=== PATIENT | male | born 1955 | race Caucasian/White ===

== ENCOUNTER 2017-05-17 23:23 | Inpatient (IN) | payer BC, OTHER ==
[2017-05-17] MEDS ORDERED: NS 1,000 ML IV ONE (23:29)
[2017-05-17] MEDS ORDERED: fentaNYL 100 MCG/2 ML INJ IVP ONE (23:29)
[2017-05-17] MEDS ORDERED: ONDANSETRON 4 MG/2 ML VIAL IVP ONE (23:29)
--- NOTE | 2017-05-17 23:32 | EDPHY ---
H & P HPI/ROS: HPI CHIEF COMPLAINT: Abdominal pain, nausea, vomiting HISTORY OF PRESENT ILLNESS: This patient is 61-year-old male, he is visiting from [facility] he arrived today in [place]. Staying at a local hotel. He presents emergency room with nausea vomiting and mid abdominal abdominal pain. Quite severe. 08/19. With multiple episodes of nonbilious nonbloody vomiting. No diarrhea. He states he ate a hamburger and potatoes for dinner around 5:00 p.m. around an hour later 6:00 p.m. he developed symptoms. His abdominal pain is still present mid abdomen. With associated nausea. No fever. No diarrhea. Denies chest pain or shortness of breath. Past Medical History: Hepatitis C, heart bony treatment, tips procedure, hypertension Past Surgical History: Tips procedure, appendectomy Social History: Lives in [facility], denies daily use of drugs alcohol tobacco. Family History: Noncontributory ROS REVIEW OF SYSTEMS: A comprehensive 10 point review of systems is otherwise negative aside from elements mentioned in the history of present illness. Exam Constitutional appears nontoxic triage nursing summary reviewed, vital signs reviewed, awake/alert. Eyes normal conjunctivae and sclera, EOMI, PERRLA. HENT normal inspection, atraumatic, moist mucus membranes, no epistaxis, neck supple/ no meningismus, no raccoon eyes. Respiratory clear to auscultation bilaterally, normal breath sounds, no respiratory distress, no wheezing. Cardiovascular rate normal, regular rhythm, no murmur, no edema, distal pulses normal. Gastrointestinal tender palpation mid abdomen, is umbilical hernia present. Rather hard. Tender to palpation. Decreased bowel sounds. , no rebound, no guarding, , no distension, no pulsatile mass. Genitourinary no CVA tenderness. Musculoskeletal no midline vertebral tenderness, full range of motion, no calf swelling, no tenderness of extremities, no meningismus, good pulses, neurovascularly intact. Skin pink, warm, & dry, no rash, skin atraumatic. Neurologic awake, alert and oriented x 3, AAOx3, moves all 4 extremities equally, motor intact, sensory intact, CN II-XII intact, normal cerebellar, normal vision, normal speech. Psychiatric normal mood/affect. Heme/Lymph/Immune no lymphadenopathy. Differential Diagnosis:Differential diagnosis includes but is not limited to and in no particular order: Bowel obstruction, appendicitis, gallbladder disease, diverticulitis, colitis, enteritis, perforated viscus, gastritis, GERD , esophagitis, urinary tract infection, pyelonephritis, kidney stones Medical Decision Making: Re-evaluation: EKG interpretation by me on record in [employer] system. Impression time of EKG 0009: This EKG is sinus tachycardia rate of 100. No acute ischemic changes. CT scan of the abdomen pelvis with/out IV contrast. The results of the study are this shows incarcerated bowel in the umbilical hernia. Dilatation with small-bowel obstruction. The study was read by Dr. Mcmillan I viewed the images myself on the PACS system. 0109AM: Patient has a bowel obstruction with incarcerated bowel stuck in the umbilical hernia. I will consult surgery. 0123AM: Spoke with Dr. Lombardo he will come and see and evaluate the patient. Patient made NPO. Plan for most likely patient go to the or. Source: Patient, EMS Constitutional: Initial Vital Signs Temperature (C) 36.8 C 05/17/17 23:32 Heart Rate 98 05/17/17 23:32 Respiratory Rate 20 05/17/17 23:32 Blood Pressure 212/86 H 05/17/17 23:32 O2 Sat (%) 94 05/17/17 23:32 O2 Delivery Mode Nasal Cannula O2 (L/minute) 3 Home Medications: Medication Instructions Recorded LACTULOSE 05/17/17 Lasix 05/17/17 Spironolactone 05/17/17 Tamsulosin HCl 05/17/17 Xifaxan 05/17/17 Medical Decision Making - Data Points Laboratory Results: Laboratory Results 05/17/17 23:56 05/17/17 23:56 05/18/17 05/18/17 05/17/17 01:05 00:03 23:56 WBC RBC Hgb Hct MCV MCH MCHC RDW Plt Count MPV Neut % (Auto) Lymph % (Auto) [place] % (Auto) Eos % (Auto) Baso % (Auto) Nucleat RBC Rel Count Absolute Neuts (auto) Absolute Lymphs (auto) Absolute Monos (auto) Absolute Eos (auto) Absolute Basos (auto) Absolute Nucleated RBC Immature Gran % Immature Gran # PT INR APTT VBG Lactic Acid 1.8 mmol/L mmol/L (0.7-2.1) Sodium 143 mEq/L mEq/L (134-144) Potassium 4.2 mEq/L mEq/L (3.5-5.2) Chloride 113 mEq/L H mEq/L (97-110) Carbon Dioxide 23 mEq/l mEq/l (22-31) Anion Gap 7 mEq/L L mEq/L (8-16) BUN 33 mg/dL H mg/dL (7-23) Creatinine 1.9 mg/dL H mg/dL (0.7-1.3) Estimated GFR 36 Glucose 177 mg/dL H mg/dL (70-100) Calcium 9.3 mg/dL mg/dL (8.5-10.4) Total Bilirubin 1.6 mg/dL H mg/dL (0.1-1.4) Conjugated Bilirubin 0.4 mg/dL mg/dL (0.0-0.5) Unconjugated Bilirubin 1.2 mg/dL H mg/dL (0.0-1.1) AST 44 IU/L IU/L (17-59) ALT 33 IU/L IU/L (21-72) Alkaline Phosphatase 148 IU/L H IU/L (38-126) Troponin I 0.024 ng/mL ng/mL (0-0.034) Total Protein 6.3 g/dL g/dL (6.3-8.2) Albumin 2.7 g/dL L g/dL (3.5-5.0) Lipase 223.0 IU/L IU/L (23-300) Urine Color YELLOW Urine Appearance HAZY Urine pH 7.0 (5.0-7.5) Ur Specific [place] 1.026 (1.002-1.030) Urine Protein 3+ H (NEGATIVE) Urine Ketones NEGATIVE (NEGATIVE) Urine Blood 2+ H (NEGATIVE) Urine Nitrate NEGATIVE (NEGATIVE) Urine Bilirubin NEGATIVE (NEGATIVE) Urine Urobilinogen NEGATIVE EU EU (0.2-1.0) Ur Leukocyte Esterase NEGATIVE (NEGATIVE) Urine RBC 15-25 /hpf H /hpf (0-3) Urine WBC 1-3 /hpf /hpf (0-3) Ur Epithelial Cells NONE SEEN /lpf /lpf (NONE-1+) Hyaline Casts 5-15 /lpf /lpf (0-1) Urine Mucus TRACE /lpf /lpf (NONE-1+) Urine Glucose 2+ H (NEGATIVE) 05/17/17 05/17/17 23:56 23:56 WBC 11.18 10^3/uL H 10^3/uL (3.80-9.50) RBC 3.94 10^6/uL L 10^6/uL (4.40-6.38) Hgb 12.6 g/dL L g/dL (13.7-17.5) Hct 36.0 % L % (40.0-51.0) MCV 91.4 fL fL (81.5-99.8) MCH 32.0 pg pg (27.9-34.1) MCHC 35.0 g/dL g/dL (32.4-36.7) RDW 14.2 % % (11.5-15.2) Plt Count 127 10^3/uL L 10^3/uL (150-400) MPV 9.8 fL fL (8.7-11.7) Neut % (Auto) 89.0 % H % (39.3-74.2) Lymph % (Auto) 3.8 % L % (15.0-45.0) [place] % (Auto) 5.5 % % (4.5-13.0) Eos % (Auto) 0.7 % % (0.6-7.6) Baso % (Auto) 0.4 % % (0.3-1.7) Nucleat RBC Rel Count 0.0 % % (0.0-0.2) Absolute Neuts (auto) 9.94 10^3/uL H 10^3/uL (1.70-6.50) Absolute Lymphs (auto) 0.43 10^3/uL L 10^3/uL (1.00-3.00) Absolute Monos (auto) 0.62 10^3/uL 10^3/uL (0.30-0.80) Absolute Eos (auto) 0.08 10^3/uL 10^3/uL (0.03-0.40) Absolute Basos (auto) 0.04 10^3/uL 10^3/uL (0.02-0.10) Absolute Nucleated RBC 0.00 10^3/uL 10^3/uL (0-0.01) Immature Gran % 0.6 % % (0.0-1.1) Immature Gran # 0.07 10^3/uL 10^3/uL (0.00-0.10) PT Pending INR Pending APTT Pending VBG Lactic Acid Sodium Potassium Chloride Carbon Dioxide Anion Gap BUN Creatinine Estimated GFR Glucose Calcium Total Bilirubin Conjugated Bilirubin Unconjugated Bilirubin AST ALT Alkaline Phosphatase Troponin I Total Protein Albumin Lipase Urine Color Urine Appearance Urine pH Ur Specific [place] Urine Protein Urine Ketones Urine Blood Urine Nitrate Urine Bilirubin Urine Urobilinogen Ur Leukocyte Esterase Urine RBC Urine WBC Ur Epithelial Cells Hyaline Casts Urine Mucus Urine Glucose Medications Given: Discontinued Medications Fentanyl (Sublimaze) 100 mcg IVP EDNOW ONE Stop: 05/17/17 23:30 Last Admin: 05/18/17 00:06 Dose: 100 mcg Sodium Chloride (Ns) 1,000 mls @ 0 mls/hr IV ONCE ONE; Wide Open PRN Reason: Protocol Stop: 05/17/17 23:30 Last Admin: 05/18/17 00:05 Dose: 1,000 mls Ondansetron HCl (Zofran) 4 mg IVP EDNOW ONE Stop: 05/17/17 23:30 Last Admin: 05/18/17 00:06 Dose: 4 mg Departure - Departure Disposition: [facility] Inpatient Acute Clinical Impression: SBO (small bowel obstruction), Incarcerated hernia Condition: Fair Referrals: Patient,NotPresent [Unknown] - As per Instructions
[2017-05-18 00:07] LABS: % IMMATURE GRANULYOCYTES 0.6 % (0.0-1.1); ABSOLUTE IMMATURE GRANULOCYTES 0.07 10^3/uL (0.00-0.10); ADD DIFF? NO; ADD MORPH? NO; ADD SCAN? NO; ATYPICAL LYMPHOCYTE FLAG 0 (0-99); FRAGMENT RBC FLAG 0 (0-99); HEMOGLOBIN 12.6 g/dL (13.7-17.5); LEFT SHIFT FLG 0 (0-99); LIPEMIA HEMOLYSIS FLAG 90 (0-99); MEAN CELL VOLUME 91.4 fL (81.5-99.8); MEAN PLATELET VOLUME 9.8 fL (8.7-11.7); PLATELET CLUMPS FLAG 0 (0-99); PLATELET COUNT 127 10^3/uL (150-400); RED BLOOD CELL COUNT 3.94 10^6/uL (4.40-6.38); RED CELL DISTRIBUTION WIDTH 14.2 % (11.5-15.2)
--- NOTE | 2017-05-18 00:11 | CPEKG ---
Heart Rate: 100 RR Interval: 600 P-R Interval: 148 QRSD Interval: 80 QT Interval: 380 QTC Interval: 491 P Deer: 41 QRS [place]: 20 T [place]: 32 EKG Severity - BORDERLINE ECG - EKG Impression: SINUS TACHYCARDIA EKG Impression: BORDERLINE PROLONGED QT INTERVAL Electronically Signed By: Isaac Ro 18-May-2017 07:22:40
[2017-05-18 00:14] LABS: ALANINE AMINOTRANSFERASE 33 IU/L (21-72); ALBUMIN 2.7 g/dL (3.5-5.0); ALKALINE PHOSPHATASE 148 IU/L (38-126); ANION GAP 7 mEq/L (8-16); ASPARTATE AMINOTRANSFERASE 44 IU/L (17-59); BILIRUBIN,TOTAL 1.6 mg/dL (0.1-1.4); BILIRUBIN-CONJUGATED 0.4 mg/dL (0.0-0.5); BILIRUBIN-UNCONJUGATED 1.2 mg/dL (0.0-1.1); CALCIUM 9.3 mg/dL (8.5-10.4); CARBON DIOXIDE 23 mEq/l (22-31); CHLORIDE 113 mEq/L (97-110); CREATININE 1.9 mg/dL (0.7-1.3); GLOMERULAR FILTRATION RATE 36; GLUCOSE 177 mg/dL (70-100); POTASSIUM 4.2 mEq/L (3.5-5.2); SODIUM 143 mEq/L (134-144); TOTAL PROTEIN 6.3 g/dL (6.3-8.2)
[2017-05-18 00:21] LABS: COLOR YELLOW; LEUKOCYTE ESTERASE,URINE NEGATIVE (NEGATIVE); NITRITE,URINE NEGATIVE (NEGATIVE)
[2017-05-18 00:25] LABS: MUCUS TRACE /lpf (NONE-1+); RBC,URINE 15-25 /hpf (0-3)
[2017-05-18 00:26] LABS: TROPONIN I 0.024 ng/mL (0-0.034)
[2017-05-18] MEDS ORDERED: fentaNYL 100 MCG/2 ML INJ IVP ONE (01:22)
[2017-05-18] MEDS ORDERED: BUPIVACAINE 0.5% 30 ML SDV ONE (01:57)
[2017-05-18] MEDS ORDERED: LIDOCAINE 1% 300 MG/30 ML SDV ONE (01:57)
[2017-05-18] MEDS ORDERED: AMPICILLIN/SULBACTAM 3 GM in NS 100 ML IV ONE (02:05)
--- NOTE | 2017-05-18 02:13 | PDGENHP ---
History and Physical - Chief Complaint Abdominal pain - History of Present Illness Barry Quan is a 61-year-old gentleman visiting from [place] with onset of acute abdominal pain at 5:30 a.m. this evening after eating a hamburger. Pain was at the umbilicus where he has a known hernia associated with severe nausea and vomiting. The patient's medical history is significant for diabetes insulin -dependent and liver failure for which he is on the transplant list. The patient's meld score by laboratory studies today is less than 15. He has been worked up for cardiac disease and cancer for potential transplant for hepatitis C. All medications listed in the chart suggests besides diabetes, BMI 38 and liver disease he is in suitable condition for surgery. History Information - Allergies/Home Medication List Allergies/Adverse Reactions: codeine Allergy (Mild, Verified 05/18/17 01:29) Abdominal Pain midazolam [From Versed] Allergy (Verified 05/18/17 02:10) Other-Enter Comments Home Medications: LACTULOSE 05/17/17 [Last Taken Unknown] Lasix 05/17/17 [Last Taken Unknown] Spironolactone 05/17/17 [Last Taken Unknown] Tamsulosin HCl 05/17/17 [Last Taken Unknown] Xifaxan 05/17/17 [Last Taken Unknown] Insulin 70/30 Human 05/18/17 [Last Taken Unknown] I have personally reviewed and updated: medical history, social history, surgical history - Past Medical History diabetes type 2, liver disease Additional medical history: Hepatitis-C, morbid obesity - Surgical History Reports: appendectomy Additional surgical history: TIPS - Family History Positive for: non-pertinent Additional family history: Patient is adopted - Social History Smoking Status: Never smoked Review of Systems ROS: 10pt was reviewed & negative except for what was stated in HPI & below EENMT: Reports: no symptoms Cardiac: Reports: no symptoms Respiratory: Reports: no symptoms Gastrointestinal: Reports: abdominal pain. Denies: black stools, blood streaked stools Genitourinary: Reports: no symptoms Physical Exam Temp Pulse Resp BP Pulse Ox 36.8 C 98 18 167/90 H 95 05/17/17 23:32 05/18/17 01:35 05/18/17 01:35 05/18/17 01:35 05/18/17 01:35 O2 (L/minute) 3 Constitutional: obese, uncomfortable Eyes: anicteric sclera, EOMI Ears, Nose, Mouth, Throat: moist mucous membranes, hearing normal Cardiovascular: regular rate and rhythym, pulses symmetric bilaterally, edema ( Nonpitting, 1+ ankle) Peripheral Pulses: 2+: carotid (R), carotid (L), dorsalis-pedis (R), dorsalis- pedis (L) Gastrointestinal: tenderness, guarding, No ascites, No rebound Genitourinary: no bladder fullness Skin: warm, no rashes or abrasions, No mottled Musculoskeletal: full muscle strength Neurologic: AAOx3, CN II-XII Intact Psychiatric: interacting appropriately, thought process linear Lymph, Heme, Immunologic: No lymphadenopathy, No petechiae Lab Data & Imaging Review 05/17/17 23:56 05/17/17 23:56 WBC 11.18 10^3/uL (3.80-9.50) H 05/17/17 23:56 RBC 3.94 10^6/uL (4.40-6.38) L 05/17/17 23:56 Hgb 12.6 g/dL (13.7-17.5) L 05/17/17 23:56 Hct 36.0 % (40.0-51.0) L 05/17/17 23:56 MCV 91.4 fL (81.5-99.8) 05/17/17 23:56 MCH 32.0 pg (27.9-34.1) 05/17/17 23:56 MCHC 35.0 g/dL (32.4-36.7) 05/17/17 23:56 RDW 14.2 % (11.5-15.2) 05/17/17 23:56 Plt Count 127 10^3/uL (150-400) L 05/17/17 23:56 MPV 9.8 fL (8.7-11.7) 05/17/17 23:56 Neut % (Auto) 89.0 % (39.3-74.2) H 05/17/17 23:56 Lymph % (Auto) 3.8 % (15.0-45.0) L 05/17/17 23:56 [place] % (Auto) 5.5 % (4.5-13.0) 05/17/17 23:56 Eos % (Auto) 0.7 % (0.6-7.6) 05/17/17 23:56 Baso % (Auto) 0.4 % (0.3-1.7) 05/17/17 23:56 Nucleat RBC Rel Count 0.0 % (0.0-0.2) 05/17/17 23:56 Absolute Neuts (auto) 9.94 10^3/uL (1.70-6.50) H 05/17/17 23:56 Absolute Lymphs (auto) 0.43 10^3/uL (1.00-3.00) L 05/17/17 23:56 Absolute Monos (auto) 0.62 10^3/uL (0.30-0.80) 05/17/17 23:56 Absolute Eos (auto) 0.08 10^3/uL (0.03-0.40) 05/17/17 23:56 Absolute Basos (auto) 0.04 10^3/uL (0.02-0.10) 05/17/17 23:56 Absolute Nucleated RBC 0.00 10^3/uL (0-0.01) 05/17/17 23:56 Immature Gran % 0.6 % (0.0-1.1) 05/17/17 23:56 Immature Gran # 0.07 10^3/uL (0.00-0.10) 05/17/17 23:56 VBG Lactic Acid 1.8 mmol/L (0.7-2.1) 05/18/17 01:05 Sodium 143 mEq/L (134-144) 05/17/17 23:56 Potassium 4.2 mEq/L (3.5-5.2) 05/17/17 23:56 Chloride 113 mEq/L (97-110) H 05/17/17 23:56 Carbon Dioxide 23 mEq/l (22-31) 05/17/17 23:56 Anion Gap 7 mEq/L (8-16) L 05/17/17 23:56 BUN 33 mg/dL (7-23) H 05/17/17 23:56 Creatinine 1.9 mg/dL (0.7-1.3) H 05/17/17 23:56 Estimated GFR 36 05/17/17 23:56 Glucose 177 mg/dL (70-100) H 05/17/17 23:56 Calcium 9.3 mg/dL (8.5-10.4) 05/17/17 23:56 Total Bilirubin 1.6 mg/dL (0.1-1.4) H 05/17/17 23:56 Conjugated Bilirubin 0.4 mg/dL (0.0-0.5) 05/17/17 23:56 Unconjugated Bilirubin 1.2 mg/dL (0.0-1.1) H 05/17/17 23:56 AST 44 IU/L (17-59) 05/17/17 23:56 ALT 33 IU/L (21-72) 05/17/17 23:56 Alkaline Phosphatase 148 IU/L (38-126) H 05/17/17 23:56 Troponin I 0.024 ng/mL (0-0.034) 05/17/17 23:56 Total Protein 6.3 g/dL (6.3-8.2) 05/17/17 23:56 Albumin 2.7 g/dL (3.5-5.0) L 05/17/17 23:56 Lipase 223.0 IU/L (23-300) 05/17/17 23:56 Urine Color YELLOW 05/18/17 00:03 Urine Appearance HAZY 05/18/17 00:03 Urine pH 7.0 (5.0-7.5) 05/18/17 00:03 Ur Specific [place] 1.026 (1.002-1.030) 05/18/17 00:03 Urine Protein 3+ (NEGATIVE) H 05/18/17 00:03 Urine Ketones NEGATIVE (NEGATIVE) 05/18/17 00:03 Urine Blood 2+ (NEGATIVE) H 05/18/17 00:03 Urine Nitrate NEGATIVE (NEGATIVE) 05/18/17 00:03 Urine Bilirubin NEGATIVE (NEGATIVE) 05/18/17 00:03 Urine Urobilinogen NEGATIVE EU (0.2-1.0) 05/18/17 00:03 Ur Leukocyte Esterase NEGATIVE (NEGATIVE) 05/18/17 00:03 Urine RBC 15-25 /hpf (0-3) H 05/18/17 00:03 Urine WBC 1-3 /hpf (0-3) 05/18/17 00:03 Ur Epithelial Cells NONE SEEN /lpf (NONE-1+) 05/18/17 00:03 Hyaline Casts 5-15 /lpf (0-1) 05/18/17 00:03 Urine Mucus TRACE /lpf (NONE-1+) 05/18/17 00:03 Urine Glucose 2+ (NEGATIVE) H 05/18/17 00:03 Imaging Review: CT scan personally reviewed on PACS demonstrates incarcerated small bowel and ventral hernia likely the umbilical region Visualized and Interpreted imaging results: Yes Interpretation: Strangulated small bowel causing small-bowel obstruction acutely Assessment & Plan Assessment: SBO (small bowel obstruction) (Acute) Incarcerated hernia (Acute) Type 2 diabetes Morbid obesity Hepatitis C Chronic liver disease awaiting transplant Meld score less than 15 based on current findings awaiting INR Plan: Open hernia repair possible small bowel resection. The risks benefits and alternatives surgery of an L1 clearly with the patient. The risks include liver failure, requirement for bowel resection in further intervention. Inability to complete surgery. The patient verbalizes understanding prior to signed written consent. Fluid resuscitation glucose control and monitoring liver function postoperatively required. All questions addressed. Will likely need medical consultation for postoperative care optimization.
[2017-05-18 02:35] LABS: APTT 31.2 SEC (23.0-38.0); INR 1.07 (0.83-1.16); PROTIME(PATIENT) 13.8 SEC (12.0-15.0)
[2017-05-18] MEDS ORDERED: MIDAZOLAM 2 MG/2 ML VIAL IVP ONE (02:42)
[2017-05-18] MEDS ORDERED: MIDAZOLAM 2 MG/2 ML VIAL ONE (02:43)
[2017-05-18] MEDS ORDERED: DEXAMETHASONE 4 MG/ML VIAL ONE (02:45)
[2017-05-18] MEDS ORDERED: PROPOFOL 200 MG/20 ML VIAL ONE (02:45)
[2017-05-18] MEDS ORDERED: SUGAMMADEX SODIUM 200 MG/2 ML VIAL IVP ONE (02:45)
[2017-05-18] MEDS ORDERED: LIDOCAINE 2% 5 ML SDV ONE (02:45)
[2017-05-18] MEDS ORDERED: ROCURONIUM 50 MG/5 ML VIAL ONE (02:45)
[2017-05-18] MEDS ORDERED: ONDANSETRON 4 MG/2 ML VIAL ONE (02:45)
[2017-05-18] MEDS ORDERED: fentaNYL 100 MCG/2 ML INJ ONE ×3 (02:46→05:03)
--- NOTE | 2017-05-18 03:09 | PDANEPAE ---
ANE History of Present Illness incarcerated umbilical hernia repair, poss SBO ANE Past Medical History - Cardiovascular History Hx Hypertension: Yes - Pulmonary History Hx Oxygen in Use at Home: No Hx Sleep Apnea: No - Endocrine History Hx Diabetes: Yes - Renal History Hx Renal Disorders: Yes - Liver History Hx Hepatic Disorders: Yes Hepatic History Comment: cirrhosis, Hep C - GI History GERD: mild ANE Review of Systems Review of systems is: negative - Exercise capacity Exercise capacity: unable to assess ANE Patient History - Allergies Allergies/Adverse Reactions: codeine Allergy (Mild, Verified 05/18/17 01:29) Abdominal Pain midazolam [From Versed] Allergy (Verified 05/18/17 02:10) Other-Enter Comments - Home Medications Home medications: home medication list seen and reviewed Home Medications: LACTULOSE 05/17/17 [Last Taken Unknown] Lasix 05/17/17 [Last Taken Unknown] Spironolactone 05/17/17 [Last Taken Unknown] Tamsulosin HCl 05/17/17 [Last Taken Unknown] Xifaxan 05/17/17 [Last Taken Unknown] Insulin 70/30 Human 05/18/17 [Last Taken Unknown] - NPO status NPO Status: no food or drink >8 hours NPO Since - Liquids (Date): 05/17/17 NPO Since - Liquids (Time): 17:00 NPO Since - Solids (Date): 05/17/17 NPO Since - Solids (Time): 17:00 - Anes Hx Anes Hx: no prior problems - Smoking Hx Smoking Status: Never smoked - Family Anes Hx Family Anes Hx: none ANE Labs/Vital Signs - Labs Result Diagrams: 05/17/17 23:56 05/17/17 23:56 - Vital Signs Blood Pressure: 190/91 Heart Rate: 99 Respiratory Rate: 18 O2 Sat (%): 98 Height: 177.8 cm Weight: 122.47 kg ANE Physical Exam - Airway Neck exam: FROM Mallampati Score: Class 3 Mouth exam: normal dental/mouth exam - Pulmonary Pulmonary: no respiratory distress - Cardiovascular Cardiovascular: regular rate and rhythym - ASA Status ASA Status: III, E ANE Anesthesia Plan Anesthesia Plan: general endotracheal anesthesia Regional Anesthesia: supraclavicular BP NB Urgent/Emergent Case: Angelic mott completed preop but documented later for safe timely pt care (RSI)
--- NOTE | 2017-05-18 03:16 | POSTANESTH ---
Post Anesthetic Evaluation Cardiovascular Status: Similar to Pre-Op Cond Respiratory Status: Similar to Pre-op Cond. Level of Consciousness/Mental Status: Can Participate in Eval, Mildly Sleepy, Arousable Pain Control: Adequate, Prn Tx Ordered Nausea/Vomiting Control: Adequate, Prn Tx Ordered Complications Possibly Related to Anesthesia: None Noted
[2017-05-18] MEDS ORDERED: OXYCODONE/APAP 5/325 TAB PO PRN (03:40)
[2017-05-18] MEDS ORDERED: PROMETHAZINE HCL 25 MG/ML INJ IVP PRN (03:40)
[2017-05-18] MEDS ORDERED: HYDROCODONE/APAP 5/325 TAB PO PRN (03:40)
[2017-05-18] MEDS ORDERED: ACETAMINOPHEN 500 MG TAB PO PRN (03:40)
[2017-05-18] MEDS ORDERED: DEXAMETHASONE 4 MG/ML VIAL IVP PRN (03:40)
[2017-05-18] MEDS ORDERED: HYDROmorphONE/DILAUDID 1 MG/ML SYR IVP PRN (03:40)
[2017-05-18] MEDS ORDERED: ONDANSETRON 4 MG/2 ML VIAL IVP PRN (03:40)
[2017-05-18] MEDS ORDERED: NALOXONE HCL 0.4 MG/ML INJ IVP PRN (03:40)
[2017-05-18] MEDS ORDERED: MEPERIDINE 25 MG/ML SYR IVP PRN (03:40)
--- NOTE | 2017-05-18 04:46 | POSTOPPROG ---
Post Op Note Date of Operation: 05/18/17 Surgeon: Kiran Lombardo Kettle Firer: none Anesthesiologist: Veronika Anesthesia: GET(General Endotracheal) Pre-op Diagnosis: strangulated ventral hernia Post-op Diagnosis: same Procedure: enterectomy, hernia repaitr primary Findings: ischemic small bowel Inf/Abcess present in the surg proc area at time of surgery?: Yes Depth: Deep Incisional (Fascial) EBL: Minimal Complications: none Specimen(s): small bowel
[2017-05-18] MEDS ORDERED: D50W 25 GM/50 ML SYR IVP PRN (04:52)
[2017-05-18] MEDS ORDERED: D10W 250 ML PRN HYPOGLYCEMIA IV (04:52)
[2017-05-18] MEDS: fentaNYL 100 MCG/2 ML INJ IVP PRN ×3 (05:04→05:32)
[2017-05-18] MEDS ORDERED: LABETALOL HCL 5 MG/ML 20 ML MDV ONE (05:20)
[2017-05-18] MEDS: LABETALOL HCL 50 MG/10 ML SYR IVP PRN ×4 (05:22→06:03)
[2017-05-18] MEDS ORDERED: HYDROmorphONE/DILAUDID 1 MG/ML SYR ONE (05:42)
--- NOTE | 2017-05-18 06:16 | GOP ---
[f rep st] OPERATIVE REPORT DATE OF OPERATION: SURGEON: Kiran Lombardo MD ANESTHESIA: General endotracheal anesthesia was used. ANESTHESIOLOGIST: Dr. Darnell. PREOPERATIVE DIAGNOSIS: Small bowel obstruction secondary to incarcerated, strangulated small bowel and a ventral hernia. POSTOPERATIVE DIAGNOSIS: Small bowel obstruction secondary to incarcerated, strangulated small bowel and a ventral hernia. PROCEDURE PERFORMED: 1. Enterectomy. 2. Primary ventral hernia repair. FINDINGS: An incarcerated small bowel. SPECIMENS: Small bowel to permanent pathology. INDICATIONS: This is a 61-year-old gentleman with a history of liver failure, who presented to the hospital with acutely incarcerated small bowel with strangulation. DESCRIPTION OF PROCEDURE: Patient was brought to the operating room. After induction of endotracheal anesthesia in the supine position, the abdomen was prepped with chlorhexidine and draped sterilely. Time-out procedure was then performed according to institutional standards. Local anesthetic was infused in the skin and subcutaneous tissues, an incision was made, and a very superficial hernia sac was encountered. This was completely dissected free and then after identifying the fascia, the hernia sac was opened. There was turbid fluid that came out, and the bowel, inside the hernia sac, appeared ischemic. The hernia defect was widened to be able to inspect the bowel better, and it was elected, at that time, to do an enterectomy in order to restore best conditions for health. The small bowel in the hernia, which was incarcerated, was resected and a [id number] functional end-to-end anastomosis was performed with a [id number] stapler. After closing the enterotomy used in creating the anastomosis, this was oversewn with 3-0 PDS, and the mesenteric defect was controlled with clamp, cut, and tie technique. The small bowel specimen was then handed off, and the bowel was inspected. It appeared viable. There were no apparent areas of weakness, and the specimen was passed off. The mesenteric defect was closed with 3-0 Vicryl, and the bowel was returned to the abdominal cavity. The fascia was then closed tension free with interrupted figure-of- eight 0 PDS sutures. The wound was irrigated. Local anesthetic was reapplied. The skin was then loosely approximated with interrupted dissolvable sutures, and clips for the skin. Intermittent Betadine julio were then placed within the wound for antibiotic coverage. The patient tolerated the procedure well. Dressing was applied. Needle, instrument, and sponge counts were verified to be correct x2. He was taken to the recovery room in stable condition. No immediate complications. INDICATIONS: A 61-year-old gentleman with incarcerated small bowel, leukocytosis, abdominal pain consistent with ischemia, for urgent surgery. The patient also has a BMI of 38 and is a type 2 diabetic. /[id number]/MODL MTDD
[2017-05-18] MEDS: LR 1,000 ML IV SCH ×2 (06:34→21:30)
--- NOTE | 2017-05-18 08:44 | SOAPPROG ---
SOAP Progress Note Assessment/Plan: Assessment/Plan: Postop day 0 status post enterectomy and primary hernia repair for strangulated umbilical/ventral hernia. History of liver failure, tips procedure on lactulose for encephalopathy. Type 2 diabetes on approximately 60 units of insulin daily. Resting comfortably at this point. Await laboratory studies Hydralazine started for hypertension 05/18/17 08:40 Objective: Vital Signs Temp Pulse Resp BP Pulse Ox 36.6 C 82 18 176/98 H 99 05/18/17 07:28 05/18/17 08:26 05/18/17 08:26 05/18/17 08:26 05/18/17 08:26 05/17/17 05/18/17 05/19/17 05:59 05:59 05:59 Intake Total 3000 Output Total 80 Balance 2920 PT 13.8 SEC (12.0-15.0) 05/18/17 02:16 INR 1.07 (0.83-1.16) 05/18/17 02:16 ICD10 Worksheet Patient Problems: Problems Problem Status Onset Incarcerated hernia Acute SBO (small bowel obstruction) Acute
[2017-05-18] MEDS: ENOXAPARIN 40 MG/0.4 ML SYR SC SCH (08:51)
[2017-05-18] MEDS: hydrALAZINE 20 MG/ML VIAL IVP PRN (08:51)
[2017-05-18] MEDS: INSULIN REGULAR HUMAN 100 UNIT/ML SC SCH ×4 (08:52→21:31)
[2017-05-18 09:06] LABS: % IMMATURE GRANULYOCYTES 1.4 % (0.0-1.1); ADD DIFF? NO; ADD MORPH? NO; ADD SCAN? NO; ATYPICAL LYMPHOCYTE FLAG 0 (0-99); FRAGMENT RBC FLAG 0 (0-99); HEMATOCRIT 37.8 % (40.0-51.0); LEFT SHIFT FLG 20 (0-99); LIPEMIA HEMOLYSIS FLAG 90 (0-99); MEAN CELL HEMOGLOBIN CONCENTR. 34.4 g/dL (32.4-36.7); MEAN CELL VOLUME 93.1 fL (81.5-99.8); MEAN PLATELET VOLUME 9.8 fL (8.7-11.7); PLATELET CLUMPS FLAG 10 (0-99); PLATELET COUNT 122 10^3/uL (150-400); RED BLOOD CELL COUNT 4.06 10^6/uL (4.40-6.38); RED CELL DISTRIBUTION WIDTH 14.4 % (11.5-15.2)
[2017-05-18 09:07] LABS: ANION GAP 8 mEq/L (8-16); CALCIUM 8.4 mg/dL (8.5-10.4); CARBON DIOXIDE 21 mEq/l (22-31); CHLORIDE 114 mEq/L (97-110); CREATININE 1.9 mg/dL (0.7-1.3); GLOMERULAR FILTRATION RATE 36; GLUCOSE 220 mg/dL (70-100); SODIUM 143 mEq/L (134-144)
[2017-05-18] MEDS: HYDROmorphONE/DILAUDID 1 MG/ML SYR IVP PRN ×2 (13:52→20:53)
[2017-05-18] MEDS: TAMSULOSIN HCL 0.4 MG CAP PO SCH (13:53)
[2017-05-18] MEDS: INSULIN GLARGINE 100 UNITS/ML SYRINGE SC SCH (13:53)
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
[2017-05-18] MEDS: RIFAXIMIN 550 MG TAB PO SCH (20:52)
[2017-05-19] MEDS: HYDROmorphONE/DILAUDID 1 MG/ML SYR IVP PRN (06:17)
[2017-05-19] MEDS ORDERED: SPIRONOLACTONE 50 MG TAB PO SCH (09:00)
[2017-05-19] MEDS ORDERED: FUROSEMIDE 20 MG TAB PO SCH (09:00)
[2017-05-19] MEDS: TAMSULOSIN HCL 0.4 MG CAP PO SCH (09:39)
[2017-05-19] MEDS: RIFAXIMIN 550 MG TAB PO SCH ×2 (09:40→20:29)
[2017-05-19] MEDS: INSULIN REGULAR HUMAN 100 UNIT/ML SC SCH ×4 (09:49→20:30)
[2017-05-19] MEDS: INSULIN GLARGINE 100 UNITS/ML SYRINGE SC SCH (09:49)
[2017-05-19] MEDS: ENOXAPARIN 40 MG/0.4 ML SYR SC SCH (09:55)
[2017-05-19 11:44] LABS: % IMMATURE GRANULYOCYTES 0.7 % (0.0-1.1); ABSOLUTE IMMATURE GRANULOCYTES 0.11 10^3/uL (0.00-0.10); ADD DIFF? NO; ADD MORPH? NO; ADD SCAN? NO; ATYPICAL LYMPHOCYTE FLAG 0 (0-99); FRAGMENT RBC FLAG 0 (0-99); HEMATOCRIT 32.1 % (40.0-51.0); LEFT SHIFT FLG 0 (0-99); LIPEMIA HEMOLYSIS FLAG 90 (0-99); MEAN CELL HEMOGLOBIN 32.3 pg (27.9-34.1); MEAN CELL HEMOGLOBIN CONCENTR. 34.3 g/dL (32.4-36.7); MEAN CELL VOLUME 94.1 fL (81.5-99.8); MEAN PLATELET VOLUME 9.6 fL (8.7-11.7); PLATELET CLUMPS FLAG 10 (0-99); PLATELET COUNT 147 10^3/uL (150-400); RED BLOOD CELL COUNT 3.41 10^6/uL (4.40-6.38); RED CELL DISTRIBUTION WIDTH 14.5 % (11.5-15.2)
[2017-05-19 11:56] LABS: ANION GAP 8 mEq/L (8-16); CALCIUM 7.8 mg/dL (8.5-10.4); CARBON DIOXIDE 19 mEq/l (22-31); CHLORIDE 109 mEq/L (97-110); CREATININE 2.7 mg/dL (0.7-1.3); GLOMERULAR FILTRATION RATE 24; GLUCOSE 130 mg/dL (70-100); POTASSIUM 4.6 mEq/L (3.5-5.2); SODIUM 136 mEq/L (134-144)
[2017-05-19] MEDS ORDERED: NS 1,000 ML IV ONE ×2 (13:00→16:43)
--- NOTE | 2017-05-19 13:00 | SOAPPROG ---
SOAP Progress Note Assessment/Plan: Assessment/Plan: Postop day 1 status post enterectomy and primary hernia repair for strangulated umbilical/ventral hernia. History of liver failure, tips procedure on lactulose for encephalopathy. Type 2 diabetes on approximately 60 units of insulin daily. Cr up to 2.7 this am WBC 15 stable as expected Minimal pain. Passing flatus RRR CTA soft ND appropriately tender Incision loosely approximated no erythema. No peritoneal signs Bowel function returned No signs of sepsis HEYDI not unexpected. Continue fluid hydration. Bolus now Lactulose restarted 05/19/17 12:57 Objective: Vital Signs Temp Pulse Resp BP Pulse Ox 36.5 C 93 14 121/64 H 90 L 05/19/17 08:00 05/19/17 08:00 05/19/17 08:00 05/19/17 08:00 05/19/17 08:00 Laboratory Results 05/19/17 11:35 05/19/17 11:25 05/18/17 05/19/17 05/20/17 05:59 05:59 05:59 Intake Total 3000 2460 Output Total 80 200 Balance 2920 2260 PT 13.8 SEC (12.0-15.0) 05/18/17 02:16 INR 1.07 (0.83-1.16) 05/18/17 02:16 ICD10 Worksheet Patient Problems: Problems Problem Status Onset Incarcerated hernia Acute SBO (small bowel obstruction) Acute
--- NOTE | 2017-05-19 13:17 | HOSPPROG ---
Hospitalist Progress Note Assessment/Plan: Patient is a 61-year-old with history of diabetes and cirrhosis secondary to chronic hepatitis-C. He is here visiting [place] from the [place] area. He developed severe abdominal pain. In the emergency room he had a CT scan which revealed a small bowel obstruction secondary to a incarcerated strangulated small bowel and ventral hernia. He is status post repair of this. Today is my 1st encounter with the patient. Chart reviewed. Reviewed his care with Dr. Lombardo. *acute on chronic renal failure baseline creat is 1.5 will dc lmwh and initiate heparin sq change fluids to normal saline hold diuretic recheck labs in a.m. *DM 2 glucoses well managed/ on Lantus *Cirrhosis secondary to hepatitis C holding Aldactone and Lasix until renal function improves surgery resumed lactulose *SBO/incarcarated s/p repair clear liquids pain is well managed *DVT prophylaxis: changed to heparin tid *Plan: repeat labs in a.m./ if creat cont to increase/ recommending a nephrology consult Subjective: Agus is feeling well today/ appetite is poor. Objective: Vital Signs Temp Pulse Resp BP Pulse Ox 36.5 C 93 14 121/64 H 90 L 05/19/17 08:00 05/19/17 08:00 05/19/17 08:00 05/19/17 08:00 05/19/17 08:00 Laboratory Results 05/19/17 11:35 05/19/17 11:25 05/18/17 05/19/17 05/20/17 05:59 05:59 05:59 Intake Total 3000 2460 Output Total 80 200 Balance 2920 2260 PT 13.8 SEC (12.0-15.0) 05/18/17 02:16 INR 1.07 (0.83-1.16) 05/18/17 02:16 - Physical Exam Constitutional: no apparent distress, appears nourished Eyes: PERRL Ears, Nose, Mouth, Throat: hearing normal Cardiovascular: regular rate and rhythym, edema (bilateral extremity) Respiratory: no respiratory distress Gastrointestinal: normoactive bowel sounds, No soft, non-tender abdomen ( hypoactive) Skin: warm Musculoskeletal: generalized weakness Neurologic: AAOx3 Psychiatric: interacting appropriately ICD10 Worksheet Patient Problems: Problems Problem Status Onset Incarcerated hernia Acute SBO (small bowel obstruction) Acute
[2017-05-19] MEDS: NS 1,000 ML IV SCH (13:41)
[2017-05-19] MEDS: LACTULOSE 20 GM/30 ML UDCUP PO SCH ×2 (16:32→20:29)
[2017-05-19] MEDS ORDERED: ALBUMIN 25% 100 ML IV ONE (17:17)
[2017-05-20] MEDS: NS 1,000 ML IV SCH (00:04)
[2017-05-20] MEDS: HEPARIN 5,000 UNIT/0.5 ML SYR SC SCH ×3 (05:56→21:24)
[2017-05-20 06:07] LABS: % IMMATURE GRANULYOCYTES 0.5 % (0.0-1.1); ABSOLUTE IMMATURE GRANULOCYTES 0.05 10^3/uL (0.00-0.10); ADD DIFF? NO; ADD MORPH? NO; ADD SCAN? YES; ATYPICAL LYMPHOCYTE FLAG 0 (0-99); FRAGMENT RBC FLAG 0 (0-99); HEMATOCRIT 29.3 % (40.0-51.0); HEMOGLOBIN 9.9 g/dL (13.7-17.5); LEFT SHIFT FLG 0 (0-99); LIPEMIA HEMOLYSIS FLAG 90 (0-99); MEAN CELL HEMOGLOBIN 31.9 pg (27.9-34.1); MEAN CELL HEMOGLOBIN CONCENTR. 33.8 g/dL (32.4-36.7); MEAN CELL VOLUME 94.5 fL (81.5-99.8); MEAN PLATELET VOLUME 10.4 fL (8.7-11.7); PLATELET COUNT 109 10^3/uL (150-400); RED CELL DISTRIBUTION WIDTH 14.2 % (11.5-15.2)
[2017-05-20 06:23] LABS: PLATELET CLUMPS FLAG 300 (0-99)
[2017-05-20 06:37] LABS: ALBUMIN 2.3 g/dL (3.5-5.0); ANION GAP 8 mEq/L (8-16); CALCIUM 7.3 mg/dL (8.5-10.4); CARBON DIOXIDE 17 mEq/l (22-31); CHLORIDE 113 mEq/L (97-110); CREATININE 2.4 mg/dL (0.7-1.3); GLOMERULAR FILTRATION RATE 27; GLUCOSE 120 mg/dL (70-100); POTASSIUM 4.2 mEq/L (3.5-5.2); SODIUM 138 mEq/L (134-144)
[2017-05-20 07:18] LABS: SCAN NEGATIVE
[2017-05-20] MEDS: INSULIN REGULAR HUMAN 100 UNIT/ML SC SCH ×4 (08:51→21:24)
[2017-05-20] MEDS: INSULIN GLARGINE 100 UNITS/ML SYRINGE SC SCH (08:59)
[2017-05-20] MEDS: LACTULOSE 20 GM/30 ML UDCUP PO SCH ×3 (08:59→21:25)
[2017-05-20] MEDS: RIFAXIMIN 550 MG TAB PO SCH ×2 (08:59→21:24)
[2017-05-20] MEDS: TAMSULOSIN HCL 0.4 MG CAP PO SCH (08:59)
[2017-05-20] MEDS: hydrALAZINE 20 MG/ML VIAL IVP PRN (09:00)
--- NOTE | 2017-05-20 10:20 | SOAPPROG ---
SOAP Progress Note Assessment/Plan: Assessment:Plan: ARF on CRF-likely ATN -underlying CKD that patient states has been attributed to his diuretic use for his liver disease -s/p SBO with ventral hernia repair and enterotomy -no obvious episodes of jovanny-operative hypotension -likely he is always in a relatively intravascularly volume-depleted state related to his physiology from his liver disease -chronically hypoalbuminemic, which contributes to this condition -now with non-oliguric ARF -was initially oliguric -now hypertensive, edematous and 15kg up from admit weight -he appears volume overloaded on exam -will check CXR -stop IVF for now -no acute indications for Hd -given the degree of third-spacing, colloid appears to be best choice if he merits any additional fluids -check urine studies -CT imaging did not show much ascites, so it does not sound like shift of ascitic fluid was a precipitant, but would defer to what Dr. Lombardo saw with regards to this in the OR for the best assessment of this issue -No evidence of renal pathology on CTso would not think he needs renal US at this time -keep fragoso in place -will discontinue the diuretics that have been on hold -Avoid DEMIAN-i, ARB, NSAIDs, contrast -will follow 05/20/17 10:21 05/20/17 10:25 Objective: Vital Signs Temp Pulse Resp BP Pulse Ox 37.0 C 100 18 191/77 H 93 05/20/17 08:00 05/20/17 08:00 05/20/17 08:00 05/20/17 08:00 05/20/17 08:00 Laboratory Results 05/20/17 05:50 05/20/17 05:50 05/19/17 05/20/17 05/21/17 05:59 05:59 05:59 Intake Total 2460 2680 Output Total 200 745 250 Balance 2260 1935 -250 PT 13.8 SEC (12.0-15.0) 05/18/17 02:16 INR 1.07 (0.83-1.16) 05/18/17 02:16 Physical Exam - Physical Exam General Appearance: WD/WN, alert, mild distress EENT: normal ENT inspection Neck: normal inspection Respiratory: decreased breath sounds (1/2 up bilaterally) Cardiac/Chest: regular rate, rhythm, systolic murmur Abdomen: normal bowel sounds, distended Back: Normal inspection Skin: normal color Extremities: swelling (throughout) ICD10 Worksheet Patient Problems: Problems Problem Status Onset Incarcerated hernia Acute SBO (small bowel obstruction) Acute
--- NOTE | 2017-05-20 10:22 | HOSPPROG ---
Hospitalist Progress Note Assessment/Plan: Patient is a 61-year-old with history of diabetes and cirrhosis secondary to chronic hepatitis-C. He is here visiting [place] from the [place] area. He developed severe abdominal pain. In the emergency room he had a CT scan which revealed a small bowel obstruction secondary to a incarcerated strangulated small bowel and ventral hernia. He is status post repair of this. He has developed acute on chronic renal failure postop with elevated creatinine slightly decreased urine output. He has some pain but is not requesting any pain medication at this time. He has passed gas. He continues to feel a little bit foggy headed a wonders if he has mild encephalopathy from his cirrhosis # acute on chronic renal failure baseline creat is 1.5. * Possible ATN. Doubt hepatorenal syndrome given high pressures. * Continue he fluids would prefer albumin given his cirrhosis but will discuss with Nephrology * Continue to hold diuretics at this time * Kidneys visualized with CT scan, no hydro. * He has not had any significant postvoid residual with frequent checks of this. # DM 2 * glucoses well managed/ on Lantus # Cirrhosis secondary to hepatitis C. Status post TIPS procedure, has had mild encephalopathy in the past. 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 Will get follow-up labs and INR # SBO/incarcarated * Mild postop ileus, has not had a BM but is passing gas and on clear liquids * Postop care per Dr. Lombardo # DVT prophylaxis: changed to heparin tid Disposition: Patient will need ongoing hospital care for postop care as well as follow-up for his renal failure. He is independent and will follow up with his doctors in [place] once he is discharged. Subjective: Feeling okay, his pain is tolerable and does not wish take narcotics at this time. He is passing some gas. He has chronic lower extremity swelling he does feel a little more bloated than usual. Objective: Vital Signs Temp Pulse Resp BP Pulse Ox 37.0 C 100 18 191/77 H 93 05/20/17 08:00 05/20/17 08:00 05/20/17 08:00 05/20/17 08:00 05/20/17 08:00 Laboratory Results 07/11/17 05:50 05/20/17 05:50 05/19/17 05/20/17 05/21/17 05:59 05:59 05:59 Intake Total 2460 2680 Output Total 200 745 250 Balance 2260 1935 -250 PT 13.8 SEC (12.0-15.0) 05/18/17 02:16 INR 1.07 (0.83-1.16) 05/18/17 02:16 - Physical Exam Constitutional: no apparent distress, obese, uncomfortable Eyes: PERRL, anicteric sclera, EOMI Ears, Nose, Mouth, Throat: moist mucous membranes, hearing normal Cardiovascular: regular rate and rhythym, no murmur, rub, or gallop Respiratory: no respiratory distress, reduced air movement Genitourinary: no bladder fullness, No fragoso in urethra Skin: warm, No normal color (Pale) Musculoskeletal: generalized weakness (No focal weakness) Neurologic: AAOx3, No facial droop Psychiatric: interacting appropriately, not anxious, not encephalopathic ICD10 Worksheet Patient Problems: Problems Problem Status Onset SBO (small bowel obstruction) Acute Incarcerated hernia Acute
[2017-05-20 10:56] LABS: ALBUMIN 2.3 g/dL (3.5-5.0); BILIRUBIN,TOTAL 1.2 mg/dL (0.1-1.4); BILIRUBIN-CONJUGATED 0.5 mg/dL (0.0-0.5); BILIRUBIN-UNCONJUGATED 0.7 mg/dL (0.0-1.1)
--- NOTE | 2017-05-20 11:22 | GCON ---
[f rep st] CONSULTATION DATE OF CONSULTATION: 05/20/2017 REASON FOR CONSULTATION: Increased creatinine. ASSESSMENT: 1. Acute on chronic renal failure. 2. Acute renal failure, likely due to ATN. 3. Underlying end-stage liver disease related to hepatitis C and cirrhosis. 4. Chronic kidney disease with a baseline creatinine 1.5 that is felt to be due to diuretics used t o manage his volume status. 5. Incarcerated umbilical hernia, status post ventral hernia repair and enterotomy to remove a sect ion of compromised small bowel. 6. Hypoalbuminemia. 7. Edema. 8. History of hepatitis C, status post Harvoni treatment. 9. Status post TIPS procedure. 10. History of hypertension. 11. Diabetes without retinopathy, but with probable underlying neuropathy. 12. BPH. 13. History of Tyler's Palsy. 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 He came to the emergency room here at [facility] on the and was found to have an incarcerated hernia at his umbilicus. He was taken to the operating room by Dr. Lombardo. His ventral hernia was repaired and he had enterotomy to resect a section of small bow el that was felt to be compromised. Postoperatively, the patient had decreased urine output and had increase in his serum creatinine. Hi s creatinine on admission was above his baseline of 1.5 with a value of 1.9. His creatinine remained stable in the first 8 hours of admission and then went up to a level of 2.7 between the and the . During this time, the patient was volume resuscitated with IV fluid in the form of both salin e and a small amount of albumin. He has had an increase in his volume status with his weight going u p from a level of 122 on admission to today's weight of 137. His documented input is over 8 L during this time. It is not clear if he received additional fluids in the operating room that he may have received in addition to this. The patient has not received any IV contrast. The patient has not received any nonsteroidal agents. His CT scan on admission was done without contrast due to his elevated creatinine reading. PAST MEDICAL HISTORY: As described above with hepatitis C,cirrhosis, Harvoni treatment, TIPS proced ure, hypertension, diabetes with probable neuropathy but without retinopathy, chronic kidney disease with baseline creatinine 1.5, BPH and Tyler's palsy. SURGICAL HISTORY: Appendectomy and then his current ventral hernia repair as well as TIPS procedure . OUTPATIENT MEDICATIONS: Have included rifaximin 550 mg twice daily, tamsulosin 0.4 daily, spironola ctone 50 mg daily. furosemide 20 mg daily, lactulose every day at night and insulin 70/30 twice nazia y with meals. ALLERGIES: Codeine and midazolam. FAMILY HISTORY: Noncontributory. SOCIAL HISTORY: Noncontributory. REVIEW OF SYSTEMS: Was obtained and is negative except for that included in the history of present illness. PHYSICAL EXAMINATION: VITAL SIGNS: He is afebrile with a temperature of 37, pulse is 100, respirati ons 20, blood pressure was elevated at 191/77 this morning; it has been running anywhere between 121 /64 to 165/76 the previous 24 hours. APPEARANCE: A 61-year-old gentleman appearing his stated age, s itting up in bed. He had the sudden experience of loose bowel movements while in his chair. He is on nasal cannula oxygen in mild distress. HEART: Tachycardic with a 2/6 systolic murmur, with a pulse of 100. He is saturating 92% on 1 L nasal cannula. Mild distress. HEENT: Atraumatic, normocephalic. NECK: Unremarkable. LUNGS: With decreased breath sounds one half up bilaterally. He currently has IV fluids running at 100 cc/hour. ABDOMEN: He has positive bowel sounds. He is distended. He is slight ly tender. EXTREMITIES: Have edema into his thighs. He has upper extremity edema in his forearms and hands as well. ASSESSMENT: He has acute on chronic renal failure. I suspect he has ATN. He has been adequately vol ume resuscitated. At this point, his creatinine has stabilized and his urine output has gone from be ing oliguric to nonoliguric. I suspect he had acute kidney injury related to hemodynamic changes rel ated to his surgery. His risk factors for his underlying liver disease. I suspect he was relatively intravascular volume depleted related to his liver disease, ongoing diuretic use, hypoalbuminemia. H is creatinine on admission was above his baseline, again, suggesting that he was probably relatively volume depleted. I suspect he had some fluid shifts associated with surgery that exacerbated this. Given the fact he did not immediately improve with IV fluids with the return of urine output, I susp ect he has an acute tubular injury and that this does not represent prerenal azotemia. His urine loo ks abnormal in the fact that he has 3+ protein, 2+ blood, as well as numerous hyaline casts noted on the microscopic. We will check urine, sodium, creatinine, and protein. Further evaluation of his ur ine well be needed if his kidney function does not continue to stabilize and/or improve. Given the nature of his urinalysis, I do not think he needs serologic testing at the present time, b ut certainly we would do that if his renal injury persists for any length of time. Care should be taken to avoid further volume overload. I think the patient currently is volume overl oaded and I will stop his IV fluids at the present time. Chest x-ray will be performed to further ev aluate his pulmonary status. If he does need additional fluid management, I would give him colloid. He is 3rd spacing quite a bit and this may help mobilize some of that tissue fluid and improve renal blood flow. Given his current hypertension, I think he probably is getting more than adequate kidne y blood flow at the present time. He has had imaging in the form of CT without contrast. I do not think he needs further renal imaging at this time. He should avoid DEMIAN inhibitors, angiotensin receptor blockers, nonsteroidal agents, and IV contrast. We will follow along with you. Currently, there are no acute indications for dialysis. Copy requested to: Dr. Mary Alice Luo #: [id number]/MODL
--- NOTE | 2017-05-20 17:11 | SOAPPROG ---
SOAP Progress Note Assessment/Plan: Assessment/Plan: Postop day 2 status post enterectomy and primary hernia repair for strangulated umbilical/ventral hernia. History of liver failure, tips procedure on lactulose for encephalopathy. Type 2 diabetes on approximately on Lantus per hospitalist service. Postoperative oliguric renal failure responding to fluid hydration. Nephrology Cr up to 2.7 this am WBC 10 Minimal pain. Passing flatus and stool after lactulose yesterday RRR CTA soft ND appropriately tender Incision loosely approximated no erythema. No peritoneal signs Bowel function returned No signs of sepsis HEYDI not unexpected. Continue fluid hydration. Advance diet Note given for flight delay. Anticipate discharge within 48 hours 05/19/17 12:57 05/20/17 17:09 Objective: Vital Signs Temp Pulse Resp BP Pulse Ox 37.1 C 106 H 18 182/80 H 91 L 05/20/17 11:46 05/20/17 11:46 05/20/17 11:46 05/20/17 11:46 05/20/17 11:46 Laboratory Results 05/20/17 05:50 05/20/17 05:50 05/19/17 05/20/17 05/21/17 05:59 05:59 05:59 Intake Total 2460 2680 Output Total 200 745 600 Balance 2260 1935 -600 PT 13.8 SEC (12.0-15.0) 05/18/17 02:16 INR 1.07 (0.83-1.16) 05/18/17 02:16 ICD10 Worksheet Patient Problems: Problems Problem Status Onset Incarcerated hernia Acute SBO (small bowel obstruction) Acute
[2017-05-21 05:42] LABS: % IMMATURE GRANULYOCYTES 0.7 % (0.0-1.1); ABSOLUTE IMMATURE GRANULOCYTES 0.07 10^3/uL (0.00-0.10); ADD DIFF? NO; ADD MORPH? NO; ADD SCAN? NO; ATYPICAL LYMPHOCYTE FLAG 0 (0-99); FRAGMENT RBC FLAG 0 (0-99); HEMATOCRIT 29.4 % (40.0-51.0); HEMOGLOBIN 9.9 g/dL (13.7-17.5); LEFT SHIFT FLG 0 (0-99); LIPEMIA HEMOLYSIS FLAG 80 (0-99); MEAN CELL HEMOGLOBIN 31.8 pg (27.9-34.1); MEAN CELL HEMOGLOBIN CONCENTR. 33.7 g/dL (32.4-36.7); MEAN CELL VOLUME 94.5 fL (81.5-99.8); MEAN PLATELET VOLUME 9.9 fL (8.7-11.7); PLATELET CLUMPS FLAG 0 (0-99); PLATELET COUNT 136 10^3/uL (150-400); RED BLOOD CELL COUNT 3.11 10^6/uL (4.40-6.38); RED CELL DISTRIBUTION WIDTH 14.3 % (11.5-15.2)
[2017-05-21] MEDS: HEPARIN 5,000 UNIT/0.5 ML SYR SC SCH ×3 (05:51→21:35)
[2017-05-21 06:02] LABS: ALANINE AMINOTRANSFERASE 27 IU/L (21-72); ALBUMIN 1.9 g/dL (3.5-5.0); ALKALINE PHOSPHATASE 68 IU/L (38-126); ANION GAP 4 mEq/L (8-16); ASPARTATE AMINOTRANSFERASE 30 IU/L (17-59); BILIRUBIN,TOTAL 1.5 mg/dL (0.1-1.4); CALCIUM 7.2 mg/dL (8.5-10.4); CARBON DIOXIDE 21 mEq/l (22-31); CHLORIDE 114 mEq/L (97-110); CREATININE 2.2 mg/dL (0.7-1.3); GLOMERULAR FILTRATION RATE 30; GLUCOSE 112 mg/dL (70-100); SODIUM 139 mEq/L (134-144); TOTAL PROTEIN 4.7 g/dL (6.3-8.2)
[2017-05-21] MEDS ORDERED: FUROSEMIDE 40 MG/4 ML VIAL IVP ONE ×2 (06:55→10:32)
[2017-05-21] MEDS: RIFAXIMIN 550 MG TAB PO SCH ×2 (08:39→20:15)
[2017-05-21] MEDS: INSULIN GLARGINE 100 UNITS/ML SYRINGE SC SCH (08:39)
[2017-05-21] MEDS: TAMSULOSIN HCL 0.4 MG CAP PO SCH (08:40)
[2017-05-21] MEDS: LACTULOSE 20 GM/30 ML UDCUP PO SCH ×3 (08:42→21:48)
[2017-05-21] MEDS: INSULIN REGULAR HUMAN 100 UNIT/ML SC SCH ×4 (08:43→21:48)
[2017-05-21 09:04] LABS: RANDOM URINE PROTEIN 929 mg/dL (0-11)
[2017-05-21] MEDS ORDERED: ALBUMIN 25% 50 ML IV ONE ×2 (10:31→11:30)
--- NOTE | 2017-05-21 10:35 | SOAPPROG ---
SOAP Progress Note Assessment/Plan: Assessment: 1. HEYDI in the setting of liver disease Likely periop ATN, Cr improving nicely, baseline 1.5. 2. Volume overload/Liver disease Quite overloaded, exacerbated by portal hypertension and hypoalbuminemia. His BP is high; his physiology is not HRS. He should tolerated diuresis. Will augment with albumin. 3. Recovering well with surgery, eating and having bowel movements. 4. R thigh pain No assymetry, hematoma, or evidence of infection apparent. Monitor. Plan: 05/21/17 10:32 05/21/17 10:35 Subjective: Looks uncomfortable Objective: Vital Signs Temp Pulse Resp BP Pulse Ox 36.6 C 81 16 150/62 H 95 05/21/17 08:00 05/21/17 08:00 05/21/17 08:00 05/21/17 08:00 05/21/17 08:00 Laboratory Results 05/21/17 05:21 05/21/17 05:21 05/20/17 05/21/17 05/22/17 05:59 05:59 05:59 Intake Total 2680 500 Output Total 745 1400 Balance 1935 -900 PT 13.8 SEC (12.0-15.0) 05/18/17 02:16 INR 1.07 (0.83-1.16) 05/18/17 02:16 Physical Exam - Physical Exam General Appearance: mild distress Respiratory: lungs clear Cardiac/Chest: regular rate, rhythm Abdomen: other (post op, soft) Extremities: other (2-3+ anasarca) Neuro/Psych: oriented x 3 ICD10 Worksheet Patient Problems: Problems Problem Status Onset Incarcerated hernia Acute SBO (small bowel obstruction) Acute
--- NOTE | 2017-05-21 14:11 | HOSPPROG ---
Hospitalist Progress Note Assessment/Plan: Patient is a 61-year-old with history of diabetes and cirrhosis secondary to chronic hepatitis-C. He is here [place] from the [place] area. He developed severe abdominal pain. In the emergency room he had a CT scan which revealed a small bowel obstruction secondary to a incarcerated strangulated small bowel and ventral hernia. He is status post repair of this. He has developed acute on chronic renal failure postop with elevated creatinine slightly decreased urine output. He has some pain but is not requesting any pain medication at this time. He has passed gas. This is my first encounter, chart reviewed. D/W Dr Gamble. # acute on chronic renal failure baseline creat is 1.5. * Possible ATN. Doubt hepatorenal syndrome given high pressures. * albumin and lasix today, D/W nephrology * Kidneys visualized with CT scan, no hydro. * He has not had any significant postvoid residual with frequent checks of this. # DM 2 * glucoses well managed/ on Lantus * cont finger sticks and ssi #Right leg pain * unclear etiol * possibly related to swelling and edema * consider back involvement * follow close * oxy ir # Cirrhosis secondary to hepatitis C. Status post TIPS procedure, has had mild encephalopathy in the past. 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 # SBO/incarcarated * Mild postop ileus,resolved. * Postop care per Dr. Lombardo # DVT prophylaxis: heparin tid Disposition: Patient will need ongoing hospital care for postop care as well as follow-up for his renal failure. He is independent and will follow up with his doctors in [place] once he is discharged. Subjective: Up in the chair. Feeling weak and tired. C/o right leg pain. Objective: Vital Signs Temp Pulse Resp BP Pulse Ox 36.9 C 78 20 167/72 H 93 05/21/17 12:00 05/21/17 12:00 05/21/17 12:00 05/21/17 12:00 05/21/17 12:00 Laboratory Results 05/21/17 05:21 05/21/17 05:21 05/20/17 05/21/17 05/22/17 05:59 05:59 05:59 Intake Total 2680 500 75 Output Total 745 1400 1125 Balance 1935 900 -1050 PT 13.8 SEC (12.0-15.0) 05/18/17 02:16 INR 1.07 (0.83-1.16) 05/18/17 02:16 - Physical Exam Constitutional: chronically ill appearing, obese, uncomfortable Eyes: PERRL, anicteric sclera, EOMI Ears, Nose, Mouth, Throat: moist mucous membranes, hearing normal, ears appear normal Cardiovascular: regular rate and rhythym, edema, No JVD Respiratory: no respiratory distress, no rales or rhonchi, reduced air movement Gastrointestinal: normoactive bowel sounds, tenderness, No ascites Skin: warm, normal color, No mottled Musculoskeletal: normal joint ROM, no joint effusions, generalized weakness Neurologic: AAOx3 Psychiatric: interacting appropriately, not anxious, not encephalopathic, thought process linear ICD10 Worksheet Patient Problems: Problems Problem Status Onset SBO (small bowel obstruction) Acute Incarcerated hernia Acute
[2017-05-21] MEDS: oxyCODONE IR 5 MG TAB PO PRN ×2 (14:19→20:14)
--- NOTE | 2017-05-21 20:25 | SOAPPROG ---
SOAP Progress Note Assessment/Plan: Assessment/Plan: Postop day 3 status post enterectomy and primary hernia repair for strangulated umbilical/ventral hernia. History of liver failure, tips procedure on lactulose for encephalopathy. Type 2 diabetes on approximately on Lantus per hospitalist service. Postoperative oliguric renal failure responding to fluid hydration. Nephrology consulted Cr up to 2.1 this am WBC 10 Minimal pain. Passing flatus and stool after lactulose yesterday RRR CTA soft ND appropriately tender Incision loosely approximated no erythema. No peritoneal signs Anemia Bowel function returned No signs of sepsis HEYDI on chronic kidney disease not unexpected. Fluid overload - diurese Advance diet Note given for flight delay. Anticipate discharge within 48 hours 05/21/17 20:24 Objective: Vital Signs Temp Pulse Resp BP Pulse Ox 36.8 C 84 14 156/73 H 94 05/21/17 19:53 05/21/17 19:53 05/21/17 19:53 05/21/17 19:53 05/21/17 19:53 Laboratory Results 05/21/17 05:21 05/21/17 05:21 05/20/17 05/21/17 05/22/17 05:59 05:59 05:59 Intake Total 2680 500 875 Output Total 745 1400 2250 Balance 1935 -900 -1375 PT 13.8 SEC (12.0-15.0) 05/18/17 02:16 INR 1.07 (0.83-1.16) 05/18/17 02:16 ICD10 Worksheet Patient Problems: Problems Problem Status Onset Incarcerated hernia Acute SBO (small bowel obstruction) Acute
[2017-05-22 06:04] LABS: ALBUMIN 2.1 g/dL (3.5-5.0); ANION GAP 5 mEq/L (8-16); CALCIUM 7.2 mg/dL (8.5-10.4); CARBON DIOXIDE 21 mEq/l (22-31); CHLORIDE 114 mEq/L (97-110); GLOMERULAR FILTRATION RATE 34; GLUCOSE 152 mg/dL (70-100); POTASSIUM 3.8 mEq/L (3.5-5.2); SODIUM 140 mEq/L (134-144)
[2017-05-22] MEDS: HEPARIN 5,000 UNIT/0.5 ML SYR SC SCH ×3 (06:10→21:39)
[2017-05-22] MEDS: oxyCODONE IR 5 MG TAB PO PRN (06:20)
[2017-05-22] MEDS: INSULIN REGULAR HUMAN 100 UNIT/ML SC SCH ×4 (07:55→21:39)
[2017-05-22] MEDS ORDERED: ALBUMIN 25% 50 ML IV ONE (08:13)
[2017-05-22] MEDS: LACTULOSE 20 GM/30 ML UDCUP PO SCH ×3 (09:19→21:54)
[2017-05-22] MEDS: FUROSEMIDE 40 MG/4 ML VIAL IVP SCH ×2 (09:19→15:08)
[2017-05-22] MEDS: INSULIN GLARGINE 100 UNITS/ML SYRINGE SC SCH (09:20)
[2017-05-22] MEDS: RIFAXIMIN 550 MG TAB PO SCH ×2 (09:20→21:39)
[2017-05-22] MEDS: TAMSULOSIN HCL 0.4 MG CAP PO SCH (09:20)
--- NOTE | 2017-05-22 09:35 | SOAPPROG ---
SOAP Progress Note Assessment/Plan: Assessment:Plan: ARF on CRF-likely ATN -resolving -still quite fluid overloaded -continue albumin and lasix for diuresis -may experience a rapid post-ATN diuresis, so would continue monitoring as inpatient -lytes okay at the present time -he has over 15# of extra fluid on board Pulmonary-abnormal CXR -suspect this is a manifestation of his fluid overload, will check to see if this is resolving with diuresis 05/22/17 09:33 Subjective: feeling better Objective: Vital Signs Temp Pulse Resp BP Pulse Ox 36.6 C 79 18 152/73 H 97 05/22/17 08:00 05/22/17 08:00 05/22/17 08:00 05/22/17 08:00 05/22/17 08:00 Laboratory Results 05/21/17 05:21 05/22/17 05:26 05/21/17 05/22/17 05/23/17 05:59 05:59 05:59 Intake Total 500 1997 Output Total 1400 3150 Balance -900 -1153 PT 13.8 SEC (12.0-15.0) 05/18/17 02:16 INR 1.07 (0.83-1.16) 05/18/17 02:16 Physical Exam - Physical Exam General Appearance: WD/WN, alert, no apparent distress EENT: normal ENT inspection Neck: normal inspection Respiratory: decreased breath sounds (1/2 up bilaterally) Cardiac/Chest: regular rate, rhythm, No diastolic murmur, No systolic murmur Abdomen: normal bowel sounds Extremities: swelling (edema into upper thighs) ICD10 Worksheet Patient Problems: Problems Problem Status Onset Incarcerated hernia Acute SBO (small bowel obstruction) Acute
--- NOTE | 2017-05-22 13:02 | HOSPPROG ---
Hospitalist Progress Note Assessment/Plan: Patient is a 61-year-old with history of diabetes and cirrhosis secondary to chronic hepatitis-C. He is here visiting [place] from the [place] area. He developed severe abdominal pain. In the emergency room he had a CT scan which revealed a small bowel obstruction secondary to a incarcerated strangulated small bowel and ventral hernia. He is status post repair of this. He has developed acute on chronic renal failure postop with elevated creatinine slightly decreased urine output. He has some pain but is not requesting any pain medication at this time. He has passed gas. # acute on chronic renal failure baseline creat is 1.5. * Likely ATN. * albumin and lasix cont * watch diuresis in hospital * Kidneys visualized with CT scan, no hydro. * He has not had any significant postvoid residual with frequent checks # DM 2 * glucoses well managed/ on Lantus * cont finger sticks and ssi #Right leg pain * unclear etiol, improving * possibly related to swelling and edema * consider back involvement * follow close * oxy ir # Cirrhosis secondary to hepatitis C. Status post TIPS procedure, has had mild encephalopathy in the past. 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 # SBO/incarcarated * Mild postop ileus,resolved. * Postop care per Dr. Lombardo # DVT prophylaxis: heparin tid Disposition: Patient will need ongoing hospital care for postop care as well as follow-up for his renal failure. He is independent and will follow up with his doctors in [place] once he is discharged. Subjective: Up in the chair. Feels better today. Less leg pain. More strength. Objective: Vital Signs Temp Pulse Resp BP Pulse Ox 36.7 C 80 18 154/74 H 92 05/22/17 11:21 05/22/17 11:21 05/22/17 11:21 05/22/17 11:21 05/22/17 11:21 Laboratory Results 05/21/17 05:21 05/22/17 05:26 05/21/17 05/22/17 05/23/17 05:59 05:59 05:59 Intake Total 500 1997 Output Total 1400 3150 600 Balance -900 -1153 -600 PT 13.8 SEC (12.0-15.0) 05/18/17 02:16 INR 1.07 (0.83-1.16) 05/18/17 02:16 - Physical Exam Constitutional: chronically ill appearing, obese Eyes: PERRL, anicteric sclera Ears, Nose, Mouth, Throat: moist mucous membranes, hearing normal Cardiovascular: regular rate and rhythym, edema Respiratory: no respiratory distress, reduced air movement Gastrointestinal: normoactive bowel sounds, tenderness Skin: warm, No mottled Musculoskeletal: no joint effusions, generalized weakness Neurologic: AAOx3 Psychiatric: interacting appropriately, not anxious, not encephalopathic ICD10 Worksheet Patient Problems: Problems Problem Status Onset SBO (small bowel obstruction) Acute Incarcerated hernia Acute
--- NOTE | 2017-05-22 22:02 | SOAPPROG ---
SOAP Progress Note Assessment/Plan: Assessment/Plan: Postop day 3 status post enterectomy and primary hernia repair for strangulated umbilical/ventral hernia. History of liver failure, tips procedure on lactulose for encephalopathy. Type 2 diabetes on approximately on Lantus per hospitalist service. Postoperative oliguric renal failure responding to fluid hydration. Medicine and Nephrology consulted - appreciated Cr baseline at 1.5 this am WBC normalized Minimal pain. Passing flatus and stool after lactulose yesterday RRR CTA soft ND appropriately tender Incision loosely approximated no erythema. No peritoneal signs Anemia Bowel function returned No signs of sepsis HEYDI on chronic kidney disease not unexpected. Fluid overload better continue to diurese Advance diet Note given for flight delay. Anticipate discharge likely tomorrow 05/21/17 20:24 05/22/17 22:01 Objective: Vital Signs Temp Pulse Resp BP Pulse Ox 36.6 C 85 14 178/72 H 96 05/22/17 19:40 05/22/17 19:40 05/22/17 19:40 05/22/17 19:40 05/22/17 19:40 Laboratory Results 05/21/17 05:21 05/22/17 05:26 05/21/17 05/22/17 05/23/17 05:59 05:59 05:59 Intake Total 500 1997 540 Output Total 1400 3150 1700 Balance -900 -1153 -1160 PT 13.8 SEC (12.0-15.0) 05/18/17 02:16 INR 1.07 (0.83-1.16) 05/18/17 02:16 ICD10 Worksheet Patient Problems: Problems Problem Status Onset Incarcerated hernia Acute SBO (small bowel obstruction) Acute
[2017-05-23] MEDS: HEPARIN 5,000 UNIT/0.5 ML SYR SC SCH ×3 (05:38→21:12)
[2017-05-23 05:52] LABS: ANION GAP 7 mEq/L (8-16); CALCIUM 7.4 mg/dL (8.5-10.4); CARBON DIOXIDE 23 mEq/l (22-31); CHLORIDE 110 mEq/L (97-110); CREATININE 1.9 mg/dL (0.7-1.3); GLOMERULAR FILTRATION RATE 36; GLUCOSE 195 mg/dL (70-100); POTASSIUM 3.8 mEq/L (3.5-5.2); SODIUM 140 mEq/L (134-144)
[2017-05-23] MEDS: INSULIN REGULAR HUMAN 100 UNIT/ML SC SCH ×4 (07:54→21:12)
[2017-05-23] MEDS: TAMSULOSIN HCL 0.4 MG CAP PO SCH (07:57)
[2017-05-23] MEDS: RIFAXIMIN 550 MG TAB PO SCH ×2 (07:57→21:12)
[2017-05-23] MEDS: INSULIN GLARGINE 100 UNITS/ML SYRINGE SC SCH (08:07)
[2017-05-23] MEDS ORDERED: ALBUMIN 25% 50 ML IV ONE (09:00)
[2017-05-23] MEDS: FUROSEMIDE 40 MG/4 ML VIAL IVP SCH ×2 (09:30→15:02)
[2017-05-23] MEDS ORDERED: IPRATROPIUM/ALBUTEROL 3 ML DEYVIAL IH PRN (10:02)
[2017-05-23] MEDS: LACTULOSE 20 GM/30 ML UDCUP PO SCH ×3 (10:33→21:11)
--- NOTE | 2017-05-23 10:35 | SOAPPROG ---
SOAP Progress Note Assessment/Plan: Assessment:Plan: ARF on CRF-likely ATN -resolving -still fluid overloaded -continue albumin and lasix for diuresis -may experience a rapid post-ATN diuresis, so would continue monitoring as inpatient -lytes okay at the present time -volume status improved on external exam Pulmonary-abnormal CXR -not resolving with diuresis -now with SOB and ?pleuritic chest pain -repeat imaging with non-contrast CT -he has no risk factors for HIV per his report -quit smoking at 23 yoa -denies any constitutional symptoms to suggest underlying TB 05/23/17 10:26 Subjective: SOB, chest discomfort Objective: Vital Signs Temp Pulse Resp BP Pulse Ox 36.9 C 97 18 162/67 H 91 L 05/23/17 07:33 05/23/17 07:33 05/23/17 07:33 05/23/17 07:58 05/23/17 07:33 Laboratory Results 05/21/17 05:21 05/23/17 05:27 05/22/17 05/23/17 05/24/17 05:59 05:59 05:59 Intake Total 19960 480 Output Total 3150 0465 Balance -1153 -1225 480 PT 13.8 SEC (12.0-15.0) 05/18/17 02:16 INR 1.07 (0.83-1.16) 05/18/17 02:16 Physical Exam - Physical Exam General Appearance: alert, moderate distress EENT: normal ENT inspection Neck: normal inspection Respiratory: decreased breath sounds (throughout) Cardiac/Chest: regular rate, rhythm, No diastolic murmur, No systolic murmur Abdomen: normal bowel sounds, non-tender Extremities: swelling (decreased) ICD10 Worksheet Patient Problems: Problems Problem Status Onset Incarcerated hernia Acute SBO (small bowel obstruction) Acute
[2017-05-23 10:46] LABS: HEMATOCRIT 28.1 % (40.0-51.0); HEMOGLOBIN 9.8 g/dL (13.7-17.5); MEAN CELL HEMOGLOBIN 32.3 pg (27.9-34.1); MEAN CELL HEMOGLOBIN CONCENTR. 34.9 g/dL (32.4-36.7); MEAN CELL VOLUME 92.7 fL (81.5-99.8); RED BLOOD CELL COUNT 3.03 10^6/uL (4.40-6.38); RED CELL DISTRIBUTION WIDTH 13.9 % (11.5-15.2)
--- NOTE | 2017-05-23 10:56 | CPEKG ---
Heart Rate: 81 RR Interval: 741 P-R Interval: 148 QRSD Interval: 80 QT Interval: 396 QTC Interval: 460 P Paterson: 45 QRS Paterson: 18 T Wave Paterson: 33 EKG Severity - NORMAL ECG - EKG Impression: SINUS RHYTHM EKG Impression: Agree with above. No significant change since May 18, 2017 Electronically Signed By: Inocencio Siu 23-May-2017 12:34:03
--- NOTE | 2017-05-23 14:19 | HOSPPROG ---
Hospitalist Progress Note Assessment/Plan: Patient is a 61-year-old with history of diabetes and cirrhosis secondary to chronic hepatitis-C. He is here visiting [place] from the [place] area. He developed severe abdominal pain. In the emergency room he had a CT scan which revealed a small bowel obstruction secondary to a incarcerated strangulated small bowel and ventral hernia. He is status post repair of this. He has developed acute on chronic renal failure postop with elevated creatinine slightly decreased urine output. He has some pain but is not requesting any pain medication at this time. He has passed gas. # acute on chronic renal failure baseline creat is 1.5. * Likely ATN. * albumin and lasix cont * watch diuresis in hospital * Kidneys visualized with CT scan, no hydro. * He has not had any significant postvoid residual with frequent checks # DM 2 * glucoses well managed/ on Lantus * cont finger sticks and ssi #Right leg pain * unclear etiol, improving * possibly related to swelling and edema * consider back involvement * follow close * oxy ir # Cirrhosis secondary to hepatitis C. Status post TIPS procedure, has had mild encephalopathy in the past. 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 # SBO/incarcarated * Mild postop ileus,resolved. * Postop care per Dr. Lombardo # Lung abnormality * ct chest ordered * D/W Dr Blakely #SOB * unclear etiol * check labs ddimer, trop, * follow ct * nebs * consider Vque scan # DVT prophylaxis: heparin tid Disposition: Patient will need ongoing hospital care for postop care as well as follow-up for his renal failure. PT/OT eval ordered Subjective: Up in the chair. Not feeling as well as yesterday. C/O SOB and dizzyness. Objective: Vital Signs Temp Pulse Resp BP Pulse Ox 36.6 C 80 18 122/62 H 97 05/23/17 12:00 05/23/17 12:00 05/23/17 12:00 05/23/17 12:00 05/23/17 12:00 Laboratory Results 05/23/17 10:39 05/23/17 05:27 05/22/17 05/23/17 05/24/17 05:59 05:59 05:59 Intake Total 1996 2540 158 Output Total 6259 2875 650 Balance -1153 -1225 -170 PT 13.8 SEC (12.0-15.0) 05/18/17 02:16 INR 1.07 (0.83-1.16) 05/18/17 02:16 - Physical Exam Constitutional: chronically ill appearing, obese, uncomfortable Eyes: PERRL, anicteric sclera, EOMI Ears, Nose, Mouth, Throat: moist mucous membranes, hearing normal, ears appear normal Cardiovascular: regular rate and rhythym, edema, No JVD Respiratory: no respiratory distress, no rales or rhonchi, reduced air movement Gastrointestinal: normoactive bowel sounds, tenderness, No ascites Skin: warm, other (pale), No erythema Musculoskeletal: normal joint ROM, no joint effusions, generalized weakness Neurologic: AAOx3 Psychiatric: interacting appropriately, not anxious, not encephalopathic, thought process linear ICD10 Worksheet Patient Problems: Problems Problem Status Onset SBO (small bowel obstruction) Acute Incarcerated hernia Acute
--- NOTE | 2017-05-23 16:45 | SOAPPROG ---
SOAP Progress Note Assessment/Plan: Assessment/Plan: Postop day 4 status post enterectomy and primary hernia repair for strangulated umbilical/ventral hernia. History of liver failure, tips procedure on lactulose for encephalopathy. Type 2 diabetes on approximately on Lantus per hospitalist service. Postoperative oliguric renal failure responding to fluid hydration. Medicine and Nephrology consulted - appreciated c/o SOB CTA chest negative by my read. Await final Cr baseline at 1.5 this am WBC normalized Tolerating PO. RRR CTA soft ND appropriately tender Incision loosely approximated no erythema. No peritoneal signs Anemia Bowel function returned No signs of sepsis HEYDI on chronic kidney disease not unexpected. Fluid overload better continue to diurese D/C in am 05/23/17 16:44 Objective: Vital Signs Temp Pulse Resp BP Pulse Ox 36.7 C 76 18 149/61 H 97 05/23/17 16:00 05/23/17 16:00 05/23/17 16:00 05/23/17 16:00 05/23/17 16:00 Laboratory Results 05/23/17 10:39 05/23/17 05:27 05/22/17 05/23/17 05/24/17 05:59 05:59 05:59 Intake Total 1996 1350 480 Output Total 3940 6163 1125 Balance -1153 -1225 -645 PT 13.8 SEC (12.0-15.0) 05/18/17 02:16 INR 1.07 (0.83-1.16) 05/18/17 02:16 ICD10 Worksheet Patient Problems: Problems Problem Status Onset Incarcerated hernia Acute SBO (small bowel obstruction) Acute
[2017-05-24] MEDS: oxyCODONE IR 5 MG TAB PO PRN (02:59)
[2017-05-24] MEDS: HEPARIN 5,000 UNIT/0.5 ML SYR SC SCH (05:36)
[2017-05-24] MEDS: FUROSEMIDE 40 MG/4 ML VIAL IVP SCH (05:37)
[2017-05-24 07:28] VITALS: BP 157/68; PULSE 81; RESP 20; TEMP 97.9; O2SAT 93
[2017-05-24] MEDS: INSULIN GLARGINE 100 UNITS/ML SYRINGE SC SCH (07:36)
[2017-05-24] MEDS: LACTULOSE 20 GM/30 ML UDCUP PO SCH (07:36)
[2017-05-24] MEDS: TAMSULOSIN HCL 0.4 MG CAP PO SCH (07:37)
[2017-05-24] MEDS: RIFAXIMIN 550 MG TAB PO SCH (07:38)
[2017-05-24] MEDS: INSULIN REGULAR HUMAN 100 UNIT/ML SC SCH (07:49)
--- NOTE | 2017-05-24 09:51 | HOSPPROG ---
Hospitalist Progress Note Assessment/Plan: # POD# 6 s/p ventral hernia repair for incarcerated hernia/SBO # SOB, resolved - no clear etiology # HEYDI on CKD suspected d/t ATN - still above baseline, SCr 1.9 yesterday - needs close outpatient f/u - discussed with patient - he will get a renal doctor as outpatient (lives in [place], [place]) # cirrhosis d/t HCV s/p TIPS - still volume overloaded - will go back on outpatient diuretics, lasix 20 daily, aldactone 50 daily - cont lactulose, rifaximin # HCV s/p treatment # DM2 - glucs reasonable on glargine, return to home 70/30 # LAD coronary disease - outpatient f/u # dvt ppx - [facility] Subjective: feels much better today; no SOB Objective: Vital Signs Temp Pulse Resp BP Pulse Ox 36.6 C 81 20 157/68 H 93 05/24/17 07:27 05/24/17 07:27 05/24/17 07:27 05/24/17 07:27 05/24/17 07:27 Laboratory Results 05/23/17 10:39 05/23/17 05:27 05/23/17 05/24/17 05/25/17 05:59 05:59 05:59 Intake Total 1350 2211 Output Total 2575 2675 Balance -1225 -464 PT 13.8 SEC (12.0-15.0) 05/18/17 02:16 INR 1.07 (0.83-1.16) 05/18/17 02:16 chart reviewed ECG personally reviewed CT chest, abd reviewed - Physical Exam Constitutional: obese Cardiovascular: regular rate and rhythym, no murmur, rub, or gallop Respiratory: no respiratory distress, no rales or rhonchi Gastrointestinal: normoactive bowel sounds, soft, non-tender abdomen, other ( midline incision CDI) ICD10 Worksheet Patient Problems: Problems Problem Status Onset SBO (small bowel obstruction) Acute Incarcerated hernia Acute
--- NOTE | 2017-05-24 12:36 | SOAPPROG ---
SOAP Progress Note Assessment/Plan: Assessment: doing very well. no pain. no nausea. afebrile. abd dist, soft. incis clean. no erythema. tx to [place] today - will follow-up with pcp and transplant surgeon there. family knows to call for any interim questions or concerns Plan: 05/24/17 12:35 Objective: Vital Signs Temp Pulse Resp BP Pulse Ox 36.6 C 81 20 157/68 H 93 05/24/17 07:27 05/24/17 07:27 05/24/17 07:27 05/24/17 07:27 05/24/17 07:27 Laboratory Results 05/23/17 10:39 05/23/17 05:27 05/23/17 05/24/17 05/25/17 05:59 05:59 05:59 Intake Total 1350 2211 Output Total 7500 6226 Balance -1225 -464 PT 13.8 SEC (12.0-15.0) 05/18/17 02:16 INR 1.07 (0.83-1.16) 05/18/17 02:16 ICD10 Worksheet Patient Problems: Problems Problem Status Onset Incarcerated hernia Acute SBO (small bowel obstruction) Acute
== END 2017-05-24 11:16 | disposition home or self-care (01) | DRG 329 ==
LOC: F3N 05-18 06:15 → F3E 05-18 18:04
PROVIDERS: ADMIT Surgery; ATTEND Surgery
PROC: 0DT80ZZ Resection of Small Intestine, Open Approach (ICD-10-PCS; principal; 2017-05-18 03:00)
DX: K43.6 Other and unspecified ventral hernia with obstruction, without gangrene (principal); N17.0 Acute kidney failure with tubular necrosis; E11.40 Type 2 diabetes mellitus with diabetic neuropathy, unspecified; K72.90 Hepatic failure, unspecified without coma; E66.01 Morbid (severe) obesity due to excess calories; B18.2 Chronic viral hepatitis C; I12.9 Hypertensive chronic kidney disease with stage 1 through stage 4 chronic kidney disease, or unspecified chronic kidney disease; N18.9 Chronic kidney disease, unspecified; K74.60 Unspecified cirrhosis of liver; E88.09 Other disorders of plasma-protein metabolism, not elsewhere classified; N40.0 Benign prostatic hyperplasia without lower urinary tract symptoms; Z68.38 Body mass index [BMI] 38.0-38.9, adult; Z79.4 Long term (current) use of insulin
CPT/HCPCS: 96374; 97161-GP; 97165-GO; 97535-GO; J0295; J0360; J1100; J1170; J1650; J1815; J1940; J2250; J2405; J2704; J3010; J3490; P9047